=== PATIENT | female | born 1995 | race Two or more races ===

== ENCOUNTER 2023-07-29 07:33 | Emergency (ER) | payer MEDICAID ==
[~2023-07-29] VITALS: Ht 157.5 cm; Wt 75.0 kg
[2023-07-29 07:41] VITALS: TEMP 98.3
[2023-07-29] MEDS ORDERED: KETOROLAC TROMETHAMINE 60 MG/2 ML VIAL IM ONE (07:45)
[2023-07-29 09:34] VITALS: BP 113/69; PULSE 79; RESP 15
[2023-07-29] MEDS ORDERED: IBUP-1492 PO (09:54)
== END 2023-07-29 09:51 | disposition home or self-care (01) ==
LOC: EMS 07:33
DX: R07.89 Other chest pain (principal); R10.2 Pelvic and perineal pain; V49.88XA Car occupant (driver) (passenger) injured in other specified transport accidents, initial encounter; Y93.89 Activity, other specified; Y92.89 Other specified places as the place of occurrence of the external cause; Y99.8 Other external cause status
CPT/HCPCS: 99284; 71045; 96372; J1885; 99283